=== PATIENT | male | born 1945 ===

== ENCOUNTER 2017-04-23 16:54 | Emergency (ER) | payer MEDICARE ==
[2017-04-23 17:05] VITALS: BP 162/77; PULSE 70; RESP 20; TEMP 97.3; O2SAT 99
--- NOTE | 2017-04-23 18:48 | ED PDOC ---
HPI: Psych/Substance Abuse Time Seen by Provider: 04/23/17 17:10 Chief Complaint (Nursing): Anxiety Chief Complaint (Provider): Anxiety History Per: Patient Additional Complaint(s): 71 yo male, PMH of Anxiety, c/o feeling very anxious, crying in triage, states feeling very depressed, takes Xanax but it makes him dizzy. Pt reports he was prescribed 0.25 mg Xanax from his PMD, then was upped to 0.5 mg; however, Pt reports that is when he started to get dizzy. Past Medical History Reviewed: Nursing Documentation, Vital Signs Vital Signs: Last Vital Signs Temp 97.3 F L 04/23/17 17:01 Pulse 70 04/23/17 17:01 Resp 20 04/23/17 17:01 BP 162/77 H 04/23/17 17:01 Pulse Ox 99 04/23/17 17:01 - Medical History PMH: Hypercholesterolemia, Pancreatitis Denies: Chronic Kidney Disease - Family History Family History: States: Unknown Family Hx - Living Arrangements Living Arrangements: With Family - Social History Current smoker - smoking cessation education provided: No Alcohol: None Drugs: Denies - Home Medications Home Medications: Ambulatory Orders Medication Instructions Recorded Meclizine [Meclizine*] 25 mg PO TID #0 tab 12/23/15 Rosuvastatin Calcium [Crestor] 10 mg PO HS #0 tablet 12/23/15 Tamsulosin HCl [Flomax] 0.4 mg PO DAILY #0 cap.er.24h 12/23/15 - Allergies Allergies/Adverse Reactions: Allergies Allergy/AdvReac Type Severity Reaction Status Date / Time iodine Allergy Mild hives Verified 12/16/15 02:42 Review of Systems ROS Statement: Except As Marked, All Systems Reviewed And Found Negative Physical Exam - Reviewed Nursing Documentation Reviewed: Yes Vital Signs Reviewed: Yes - Physical Exam Appears: Positive for: Well, Non-toxic, No Acute Distress Head Exam: Positive for: ATRAUMATIC, NORMAL INSPECTION, NORMOCEPHALIC Skin: Positive for: Normal Color, Warm, DRY Eye Exam: Positive for: EOMI, Normal appearance, PERRL ENT: Positive for: Normal ENT Inspection Neck: Positive for: Normal, Painless ROM Cardiovascular/Chest: Positive for: Regular Rate, Rhythm Respiratory: Positive for: CNT, Normal Breath Sounds Gastrointestinal/Abdominal: Positive for: Normal Exam, Bowel Sounds, Soft Back: Positive for: Normal Inspection Extremity: Positive for: Normal ROM Neurologic/Psych: Positive for: Alert, Oriented - Laboratory Results Result Diagrams: 04/23/17 19:35 04/23/17 19:35 - ECG O2 Sat by Pulse Oximetry: 99 Medical Decision Making Medical Decision Making: Diagnostics ordered Crisis made aware of eval. Case endorsed to SUKHJINDER Morris at 2000 Disposition - Clinical Impression Clinical Impression: Anxiety - Patient ED Disposition Is Patient to be Admitted: Transfer of Care - Disposition Disposition: Transfer of Care Disposition Time: 20:16 Condition: STABLE Forms: [employer] ([place]) - POA Present On Arrival: None
[2017-04-23 19:45] LABS: BASO % 0.2 % (0.0-2.0); EOS # 0.6 K/uL (0.0-0.7); EOS % 4.3 % (0.0-4.0); HEMATOCRIT 48.2 % (35.0-51.0); LYMPH # 5.3 K/uL (1.0-4.3); LYMPH % 38.8 % (20.0-40.0); MEAN CELL VOLUME 94.8 fl (80.0-94.0); MEAN CORPUSCULAR HEMOGLOBIN 31.1 pg (27.0-31.0); MEAN CORPUSCULAR HGB CONC 32.8 g/dL (33.0-37.0); MEAN PLATELET VOLUME 9.1 fl (7.2-11.7); MONO # 1.1 K/uL (0.0-0.8); MONO % 7.8 % (0.0-10.0); NEUT # 6.7 K/uL (1.8-7.0); NEUT % 48.9 % (50.0-75.0); NRBC % 0.1 % (0.0-0.0); RED CELL DISTRIBUTION WIDTH 13.4 % (11.5-14.5); WHITE BLOOD COUNT 13.6 K/uL (4.8-10.8)
[2017-04-23 19:49] LABS: ALB/GLOB RATIO 1.3 (1.0-2.1); ALCOHOL SERUM < 10 mg/dl (0-10); ALKALINE PHOSPHATASE 96 U/L (38-126); ALT/SGPT 42 U/L (21-72); AST/SGOT 26 U/L (17-59); BILIRUBIN,TOTAL 0.4 mg/dl (0.2-1.3); BLOOD UREA NITROGEN 25 mg/dl (9-20); CALCIUM 9.4 mg/dL (8.4-10.2); CARBON DIOXIDE 24 mmol/L (22-30); CHLORIDE 110 mmol/L (98-107); GFR AFRICAN-AMERICAN > 60; GLUCOSE,RANDOM 90 mg/dL (75-110); POTASSIUM 4.9 MMOL/L (3.6-5.0); SODIUM 141 mmol/l (132-148); TOTAL PROTEIN 7.5 G/DL (6.3-8.2)
[2017-04-23 19:59] LABS: RBC URINE 5 /hpf (0-3); URINE BACTERIA RARE (<OCC); URINE BILIRUBIN NEGATIVE (NEGATIVE); URINE BLOOD SMALL (NEGATIVE); URINE COLOR YELLOW (YELLOW); URINE GLUCOSE (UA) NEG (Normal); URINE KETONE NEGATIVE (NEGATIVE); URINE LEUKOCYTE ESTERASE SMALL Leu/uL (Negative); URINE PROTEIN NEGATIVE (NEGATIVE); URINE UROBILINOGEN 0.2-1.0 mg/dL (0.2-1.0); WBC URINE 8 /hpf (0-5)
--- NOTE | 2017-04-23 21:26 | ED PDOC ---
- Laboratory Results Result Diagrams: 04/23/17 19:35 04/23/17 19:35 - ECG O2 Sat by Pulse Oximetry: 99 - Progress ED Course And Treament: Seen by crisis Cleared by Dr. Brar Diagnosis Anxiety Disposition - Clinical Impression Clinical Impression: Anxiety - POA Present On Arrival: None - Disposition Disposition: Routine/Home Disposition Time: 21:26 Condition: STABLE Instructions: Anxiety (ED) Forms: [employer] [employer] ([place])
--- NOTE | 2017-04-24 10:20 | CARD ---
APPROVED REPORT EKG Measurement Heart [id number] <Conclusion> Sinus bradycardia Left anterior fascicular block Abnormal ECG
== END 2017-04-23 21:40 | disposition home or self-care (01) ==
LOC: H.ER 16:54
DX: F41.9 Anxiety disorder, unspecified (principal); F31.9 Bipolar disorder, unspecified; E78.00 Pure hypercholesterolemia, unspecified
CPT/HCPCS: 80053; 81003; 84484; 85025; 93005; 99283; G0480

== ENCOUNTER 2017-06-24 07:47 | Day surgery (SDC) | payer MEDICARE ==
[2017-06-24] MEDS ORDERED: Lactated Ringer's 1,000 ML IV ONE (08:18)
[2017-06-24] MEDS ORDERED: Lidocaine 2% MPF (5 ml) Inj ONE (10:44)
[2017-06-24] MEDS ORDERED: Propofol 10 mg/ml Inj (20 ML) ONE (10:44)
[2017-06-24 11:48] VITALS: BP 121/69; PULSE 59; RESP 12; TEMP 97.5; O2SAT 96
== END 2017-06-24 12:03 | disposition home or self-care (01) ==
LOC: H.ENDO 07:47
PROVIDERS: ATTEND Internal Medicine Gastroenterology
DX: Z86.010 Personal history of colon polyps (principal); E78.5 Hyperlipidemia, unspecified
CPT/HCPCS: J2704; J7120

== ENCOUNTER 2017-07-08 09:49 | Day surgery (SDC) | payer MEDICARE ==
[2017-07-08] MEDS ORDERED: Lactated Ringer's 1,000 ML IV ONE (10:09)
[2017-07-08] MEDS ORDERED: Propofol 10 mg/ml Inj (20 ML) ONE (11:29)
[2017-07-08] MEDS ORDERED: Midazolam 2 MG/2 ML VIAL ONE (11:29)
[2017-07-08 12:18] VITALS: BP 100/72; PULSE 62; RESP 19; TEMP 97; O2SAT 97
== END 2017-07-08 15:16 | disposition home or self-care (01) ==
LOC: H.ENDO 09:49
PROVIDERS: ATTEND Internal Medicine Gastroenterology
DX: K30 Functional dyspepsia (principal); E78.5 Hyperlipidemia, unspecified; K22.8 Other specified diseases of esophagus; K31.9 Disease of stomach and duodenum, unspecified; K26.9 Duodenal ulcer, unspecified as acute or chronic, without hemorrhage or perforation
CPT/HCPCS: 43239; 88305; J2250; J2704; J7120